=== PATIENT | male | born 1990 | race Caucasian/White ===

== ENCOUNTER 2020-02-22 19:18 | Emergency (ER) | payer BC ==
--- NOTE | 2020-02-22 19:21 | EDM.PDOC ---
ED HPI GENERAL MEDICAL PROBLEM - General Chief Complaint: Laceration Stated Complaint: NEED STICHES Time Seen by Provider: 02/22/20 19:18 Source of Information: Reports: Patient History Limitations: Reports: No Limitations - History of Present Illness INITIAL COMMENTS - FREE TEXT/NARRATIVE: HISTORY OF PRESENT ILLNESS: Patient is a 29-year-old male who presents to the Emergency Department with complaints of laceration. Incident occurred prior to arrival when he was struck in the head with a Frisbee or the disc golf course. Denies radiation of pain. Pain is rated as 3/10 in severity. Denies any foreign body sensation. No paresthesias. Tetanus is not up to date. Denies history of diabetes. . No other medical complaints at this time. Has otherwise been in normal state of health. REVIEW OF SYSTEMS: Other than the symptoms associated with the present events, the following is reported with regard to recent health: General: (-) fever. HENT: (-) congestion. NECK: no pain BACK: no pain Respiratory: (-) dyspnea Cardiovascular: (-) chest pain. GI: (-) abdominal pain. Musculoskeletal: (-) bony pain Endocrine: (-) generalized weakness. Neurological: (-) localized weakness. Skin: (+) laceration PAST MEDICAL HISTORY: reviewed as per nursing notes SOCIAL HISTORY: reviewed as per nursing notes, MEDICATIONS: Per nurse's note ALLERGIES: Per nurse's note, reviewed by me PHYSICAL EXAMINATION: GENERALIZED APPEARANCE: well developed, well nourished, in no distress VITAL SIGNS: Per nurse's note, reviewed by me SKIN: approximately 5 cm linear laceration with minimal subcutaneous involvement to the right frontal scalp in hairline. no galea involvement (-) pulsatile bleeding (-) obvious visible foreign body (+) clean margins (-) active discharge (-) surrounding cellulitis (-) lymphangitis. (-) fluctuance. HEAD: (-) scalp swelling, (-) bony deformity. EYES: (-) conjunctival pallor, (-) scleral icterus.EOMI ENMT: airway patent: (-) stridor; mucous membranes moist. NECK: supple, (-) stiffness, CHEST AND RESPIRATORY: (-) rales, (-) rhonchi, (-) wheezes; breath sounds equal bilaterally. HEART AND CARDIOVASCULAR: (-) irregularity; (-) murmur, (-) gallop. EXTREMITIES: laceration as above. FROM. 5/5+ strength. NEURO AND PSYCH: sensation intact. Awake, alert. Cranial nerves grossly intact ; strength symmetric. gait steady. PROCEDURE: see below EMERGENCY DEPARTMENT COURSE AND TREATMENT: Patient's condition remained stable during Emergency Department evaluation. The patient presents with laceration, without evidence of significant foreign body, or neurovascular injury. Patient received local wound care including irrigation by THANG Shah. The wound was closed without incident and the patient tolerated the procedure well. The patient was advised of risk of scar and infection, and it was felt that the risk of infection was outweighed by the need to close this wound for hemostasis and cosmoses. The patient was given wound care precautions and understands to seek medical attention immediately if there are any signs of infection. Otherwise, the patient will follow up with the primary care provider in 1-2 days for wound check and 5 days for staple removal. PLAN AND FOLLOW-UP: Patient received written and verbal instructions regarding this condition. Return to ED immediately with any new or worsening symptoms. Follow up to be arranged by patient with pcp in 1-2 days for wound check and in ED or with pcp in 5 days for staple removal Given discharge precautions. Patient expressed verbal understanding. Head Pain Score (Numeric/FACES): 3 - Related Data Allergies Allergy/AdvReac Type Severity Reaction Status Date / Time No Known Allergies Allergy Verified 02/22/20 19:37 Home Meds: Home Meds . [No Known Home Meds] 02/22/20 [History] ED ROS GENERAL - Review of Systems Review Of Systems: See Below (see dictation) ED EXAM, GENERAL - Physical Exam Exam: See Below (see dictation) ED GENERAL MEDICAL PROCEDURES - Laceration/Wound Repair Right Head Lac/wound length in cm: 5 Appearance: Subcutaneous Distal NVT: Neuro & Vascular Intact Skin Prep: Saline Exploration/Debridement/Repair: Wound Explored, No Foreign Material Found Closed with: Cloudcroft (#3 after irrigation by Alyssa DESIR) Tetanus Status Addressed: Yes Complications: No Course - Vital Signs Last Recorded V/S: Last Vital Signs Temp 97.2 F 02/22/20 19:21 Pulse 91 02/22/20 19:21 Resp 16 02/22/20 19:21 BP 143/79 H 02/22/20 19:21 Pulse Ox 97 02/22/20 19:21 - Orders/Labs/Meds Orders: Active Orders 24 hr Category Date Time Status Vaccines to be Administered [RC] PER UNIT ROUTINE Care 02/22/20 19:36 Active Meds: Medications Discontinued Medications Generic Name Dose Route Start Last Admin Trade Name Abdirahman PRN Reason Stop Dose Admin Diphtheria/Tetanus/Acell Pertussis 0.5 ml 02/22/20 19:35 Adacel IM 02/22/20 19:36 .ONCE ONE Departure - Departure Time of Disposition: 19:42 Disposition: Home, Self-Care 01 Condition: Good Clinical Impression: Scalp laceration - Discharge Information *PRESCRIPTION DRUG MONITORING PROGRAM REVIEWED*: Not Applicable *COPY OF PRESCRIPTION DRUG MONITORING REPORT IN PATIENT SUSAN: Not Applicable Instructions: Laceration Care, Adult, Sutures, Cloudcroft, or Adhesive Wound Closure, [id number] Referrals: PCP,Dalton [Primary Care Provider] - Jad Corrigan [Ordering Only Provider] - 2 Days Forms: ED Department Discharge Additional Instructions: The following information is given to patients seen in the emergency department who are being discharged to home. This information is to outline your options for follow-up care. We provide all patients seen in our emergency department with a follow-up referral. The need for follow-up, as well as the timing and circumstances, are variable depending upon the specifics of your emergency department visit. If you don't have a primary care physician on staff, we will provide you with a referral. We always advise you to contact your personal physician following an emergency department visit to inform them of the circumstance of the visit and for follow-up with them and/or the need for any referrals to a consulting specialist. The emergency department will also refer you to a specialist when appropriate. This referral assures that you have the opportunity for follow-up care with a specialist. All of these measure are taken in an effort to provide you with optimal care, which includes your follow-up. Under all circumstances we always encourage you to contact your private physician who remains a resource for coordinating your care. When calling for follow-up care, please make the office aware that this follow-up is from your recent emergency room visit. If for any reason you are refused follow-up, please contact the [facility] Emergency Department at and asked to speak to the emergency department charge nurse. Sepsis Event Note - Focused Exam Vital Signs: Vital Signs Temp Pulse Resp BP Pulse Ox 02/22/20 19:21 97.2 F 91 16 143/79 H 97 Date Exam was Performed: 02/22/20 Time Exam was Performed: 19:40 - My Orders Last 24 Hours: My Active Orders 02/22/20 19:36 Vaccines to be Administered [RC] PER UNIT ROUTINE - Assessment/Plan Last 24 Hours: My Active Orders 02/22/20 19:36 Vaccines to be Administered [RC] PER UNIT ROUTINE
[2020-02-22] MEDS ORDERED: Diphtheria,Pertussis(Acell),Tetanus Vaccine 0.5 ML Syringe IM ONE (19:35)
== END 2020-02-22 20:01 | disposition home or self-care (01) ==
LOC: MW.ED 19:18
DX: S01.01XA Laceration without foreign body of scalp, initial encounter (principal); Z23 Encounter for immunization; W22.8XXA Striking against or struck by other objects, initial encounter
CPT/HCPCS: 12002; 90471; 90715; 99282